=== PATIENT | female | born 1960 | race Caucasian/White ===

== ENCOUNTER 2017-04-24 20:52 | Emergency (ER) | payer SELFPAY ==
[2017-04-24 21:08] VITALS: BP 167/92; PULSE 100; TEMP 98.7; O2SAT 100
--- NOTE | 2017-04-24 21:29 | C.PDOC ---
History Of Present Illness Patient complains she "cannot breathe". Patient states she feels very stuffed and congested for 4 days. She took sudafed with temporary relief, wears off after few hours. She now feels its traveling to her chest, has congestion and has to take deep breath to get air. She denies any fever, headache, chest pain, sputum. Time Seen by Provider: 04/24/17 21:14 Chief Complaint (Nursing): Cough, Cold, Congestion History Per: Patient History/Exam Limitations: no limitations Onset/Duration Of Symptoms: Days (4) Current Symptoms Are (Timing): Still Present Location Of Pain: Sinus/es Sick Contacts (Context): None Associated Symptoms: Nasal Congestion Past Medical History Reviewed: Historical Data, Nursing Documentation, Vital Signs Vital Signs: Last Vital Signs Temp 98.7 F 04/24/17 21:04 Pulse 100 H 04/24/17 21:04 Resp 20 04/24/17 21:59 BP 167/92 H 04/24/17 21:04 Pulse Ox 100 04/24/17 21:38 - Medical History PMH: HTN, Hypercholesterolemia Surgical History: No Surg Hx - [facility] Procedures CERVICAL BIOPSY NEC (08/28/05) D & C NEC (08/28/05) HYSTEROSCOPY (08/28/05) OTH LYSIS-PERITONEAL ADHES (10/11/05) OTH REMOVE BOTH OVARIES/TUBES (10/11/05) TOTAL ABD HYSTERECTOMY (10/11/05) Family History: States: Unknown Family Hx - Social History Hx Tobacco Use: No Hx Alcohol Use: No Hx Substance Use: No - Immunization History Hx Tetanus Toxoid Vaccination: No Hx Influenza Vaccination: No Hx Pneumococcal Vaccination: No Review Of Systems Constitutional: Negative for: Fever, Weakness Eyes: Negative for: Vision Change, Redness ENT: Positive for: Nose Congestion. Negative for: Ear Pain, Throat Pain Cardiovascular: Negative for: Chest Pain, Palpitations Respiratory: Positive for: Cough. Negative for: Sputum, Wheezing Gastrointestinal: Negative for: Vomiting, Abdominal Pain, Diarrhea Skin: Negative for: Rash Neurological: Negative for: Headache, Dizziness Physical Exam - Physical Exam Appears: Non-toxic, No Acute Distress Skin: Warm, Dry Head: Atraumatic, Normacephalic Eye(s): bilateral: Normal Inspection, PERRL, EOMI Ear(s): Bilateral: Normal (no erythema) Nose: Other (nasal congestion) Oral Mucosa: Moist Throat: Normal, No Erythema, No Exudate, No Drooling, No Mass Neck: Normal ROM Lymphatic: Normal Exam, No Adenopathy Chest: Symmetrical Cardiovascular: Rhythm Regular, No Murmur Respiratory: Normal Breath Sounds, No Accessory Muscle Use, No Rales, No Rhonchi , No Stridor, No Wheezing Extremity: Bilateral: Atraumatic, Normal ROM Neurological/Psych: Oriented x3, Normal Speech Gait: Steady ED Course And Treatment O2 Sat by Pulse Oximetry: 100 Medical Decision Making Medical Decision Making: Patient with nasal congestion for 4 days. She is speaking clear sentences, has clear lung sounds bilaterally and oxygen saturation is 100%. She has no difficult swallowing. Patient was treated with Prednisone. She remained afebrile and in no respiratory distress. recommend decongestant, nasal spray and prednisone to treat symptoms. Disposition Counseled Patient/Family Regarding: Diagnosis, Need For Followup, Rx Given - Disposition Referrals: [facility] [Outside] [facility] [Outside] Disposition: HOME/ ROUTINE Disposition Time: 21:35 Condition: GOOD Additional Instructions: Por favor, raza un seguimiento con brar mdico para obtener ms cuidados use aerosol nasal diariamente madina un descongestionante diario obdulia sudafed madina prednisona diariamente regresar al [facility] Prescriptions: Prednisone 50 mg PO DAILY #4 tablet Instructions: Upper Respiratory Infection (ED) Forms: Mailgun (Maltese) Print Language: [place] CITIZEN - POA Present On Arrival: None - Clinical Impression Clinical Impression: Upper respiratory infection
[2017-04-24 22:00] VITALS: RESP 20
== END 2017-04-24 21:59 | disposition home or self-care (01) ==
LOC: C.ER 20:52
DX: J06.9 Acute upper respiratory infection, unspecified (principal)